=== PATIENT | female | born 1965 | race Caucasian/White ===

== ENCOUNTER 2018-06-27 20:14 | Emergency (ER) | payer OTHER ==
[~2018-06-27] VITALS: Ht 154.9 cm; Wt 77.1 kg
--- NOTE | 2018-06-27 20:47 | NUR ---
BIBSELF WITH DANIELA. AAOX4. NAD. AMBULATORY. BREATHING EVEN AND UNLABORED. DENIES CP. GAMBIAN SPEAKING DAUGHTER AT BEDSIDE TO TRANSLATE. C/O WEAKNESS AND "NOT FEELING WELL" SINCE TUESDAY. AWAITING MD FOR EVAL.
--- NOTE | 2018-06-27 21:18 | NUR ---
IV LINE OBTAINED ON R AC 20G. BLOOD DRAWN AND LAB AT BEDSIDE.
--- NOTE | 2018-06-27 21:19 | NUR ---
EKG AT BEDSIDE
[2018-06-27 21:22] LABS: BASOPHILS # (AUTO) 0.1 /CMM (0.0-0.2); BASOPHILS % (AUTO) 0.7 % (0.0-2.0); HEMATOCRIT 38 % (33-45); HEMOGLOBIN 12.4 g/dL (11.5-14.8); LYMPHOCYTES # (AUTO) 2.8 /CMM (0.8-4.8); LYMPHOCYTES % (AUTO) 37.8 % (20.0-44.0); MEAN CORPUSCULAR HGB CONC 33 g/dl (31.0-36.0); MEAN CORPUSCULAR VOLUME 86 fL (82-100); MONOCYTES # (AUTO) 0.6 /CMM (0.1-1.30); MONOCYTES % (AUTO) 7.7 % (2.0-12.0); NEUTROPHILS # (AUTO) 3.8 /CMM (1.8-8.9); NEUTROPHILS % (AUTO) 50.8 % (43.0-81.0); PLATELET COUNT (AUTO) 310 /CMM (150-450); RED BLOOD CELL COUNT(AUTO) 4.41 MIL/uL (4.0-5.2); WHITE BLOOD COUNT (AUTO) 7.4 K/uL (4.3-11.0)
[2018-06-27 21:29] LABS: CALCIUM, SERUM 8.9 mg/dL (8.5-10.1); CARBON DIOXIDE 29 mmol/L (21-32); CHLORIDE 105 mmol/L (98-107); GLUCOSE 142 mg/dL (74-106); SODIUM SERUM 141 mmol/L (136-145); UREA NITROGEN, BLOOD 17 mg/dL (7-18)
[2018-06-27] MEDS ORDERED: IV NS 0.9% 1,000 ML BAG IV ONE (21:30)
--- NOTE | 2018-06-27 23:55 | NUR ---
Patient discharged to home in stable condition. Written and verbal after care instructions given. Patient verbalizes understanding of instruction.
[2018-06-28 00:39] VITALS: BP 124/73
== END 2018-06-27 23:55 | disposition home or self-care (01) ==
LOC: ER 20:18
DX: R51 Headache (principal); R03.1 Nonspecific low blood-pressure reading; E11.9 Type 2 diabetes mellitus without complications; Z88.0 Allergy status to penicillin
CPT/HCPCS: 36415; 71045; 80048; 84484; 85025; 93005; 96360; 99284; J7030

== ENCOUNTER 2023-10-17 18:27 | Emergency (ER) | payer OTHER ==
[~2023-10-17] VITALS: Ht 160 cm; Wt 83.9 kg
[2023-10-17 18:48] VITALS: BP 107/77; TEMP 98
[2023-10-17] MEDS ORDERED: KETOROLAC TROMETHAMINE INJ 30 MG/ML VIAL ONE (20:02)
[2023-10-17] MEDS: KETOROLAC TROMETHAMINE INJ 60 MG/2 ML VIAL IM ONE (20:12)
[2023-10-17] MEDS ORDERED: IBUP-1953 PO (20:47)
[2023-10-17 20:58] VITALS: O2SAT 97
== END 2023-10-17 21:00 | disposition home or self-care (01) ==
LOC: ER 18:27
DX: M25.562 Pain in left knee (principal); M25.561 Pain in right knee; E11.9 Type 2 diabetes mellitus without complications; Z88.0 Allergy status to penicillin
CPT/HCPCS: 99284; 96372; 73564 ×2; J1885